=== PATIENT | female | born 1950 | race Caucasian/White ===

== ENCOUNTER 2024-02-28 12:46 | Outpatient (CLI) | payer MEDICARE, BC, SELFPAY ==
--- NOTE | 2024-02-28 13:00 | MR_ITS ---
[address] [address] Phone:?[phone] Fax:?[phone] Referring Physician Information: Lauro Roberto M.D. [id number] [facility] [address] Phone:?[phone] Fax:?[phone] Patient:Omid Carlton D.O.B:?1950 Sex:?Female Phone:?[phone] [facility] MRN:?[id number] Exam Date:?02/28/2024 EXAM: MRI OF THE RIGHT KNEE CLINICAL INFORMATION: The patient is a 74-year-old with right knee pain. Evaluate for medial meniscal tear. PRIOR SURGERY: None reported. COMPARISON STUDIES: Comparison is made to prior radiographs dated 02/20/2024. TECHNICAL INFORMATION: Imaging was performed on a high-field, 1.5 Crystal MR scanner. Axial proton-density and fat-suppressed T2 imaging of the right knee was performed in addition to sagittal proton-density and sagittal fat-suppressed proton-density imaging. Coronal proton-density and coronal STIR imaging was also produced. FINDINGS: Articular/Extraarticular collections: Effusion: Mild. Popliteal cyst: Small, seen on sagittal series 6 image 22. Loose bodies: No well-defined intra-articular loose bodies are present. Subcutaneous and extraarticular soft tissues: Nonspecific subcutaneous soft tissue edema and/or hemorrhage can be seen along the anterior and medial aspects of the right knee. Osseous structures: Mild reactive bony changes are seen involving the patellar apex, in keeping with chondromalacia described below. No other bony abnormalities about the knee are seen. There is no evidence for fracture, contusion, or stress injury. Ligamentous structures: ACL: Intact and normal in appearance. PCL: Intact and normal in appearance. MCL: Intact and normal in appearance. LCL: Intact and normal in appearance. Posterolateral corner: Intact and normal in appearance. Posteromedial corner: No posteromedial corner soft tissue injury. Semimembranosus and pes anserine tendons demonstrate no tendinopathy or associated bursitis. Extensor mechanism/Patellar retinacular structures: Patellar tendon: Intact, without tendinopathy. Quadriceps tendon: Intact, without tendinopathy. Retinacula: The medial and lateral retinacula are intact. The medial patellofemoral ligament is intact. Medial compartment: Medial meniscus: The medial meniscus is abnormal in appearance. There is apical free edge and inferior surface tearing of the middle and posterior portions of the medial meniscus seen on sagittal series 6 images 23 and 24 and on coronal series 7 images 20 and 21. The area of medial meniscal tearing measures approximately 15 mm in greatest dimension. No definite evidence for well-defined parameniscal cyst formation is noted. The anterior horn of the medial meniscus appears intact. Medial femoral condyle: Broad-based changes of grade II to III chondromalacia can be seen along the weightbearing surfaces of the medial femoral condyle. Medial tibial plateau: No chondromalacia, chondral defect, or osteochondral abnormality. Lateral compartment: Lateral meniscus: Degeneration and poorly defined tearing of the far posterior aspect of the lateral meniscus can be seen at the meniscotibial attachment on sagittal series 6 image 12 and on coronal series 7 image 22. The area of poorly defined tearing is thought to measure approximately 8 mm in greatest dimension. The lateral meniscus is otherwise intact. No parameniscal cyst formation is seen. Lateral femoral condyle: No chondromalacia, chondral defect, or osteochondral abnormality. Lateral tibial plateau: No chondromalacia, chondral defect, or osteochondral abnormality. Patellofemoral compartment: Patella: Grade II chondromalacia can be seen involving the patellar apex. Mild underlying bony changes are seen. No other chondral injuries of the patella are noted. Trochlea: No chondromalacia, chondral defect, or osteochondral abnormality. Neurovascular: No definite neurovascular abnormalities are seen. CONCLUSION: 1. Broad-based tearing of the middle and posterior portions of the medial meniscus. 2. Poorly defined tearing of the far posterior aspect of the lateral meniscus at the meniscotibial attachment. 3. 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 4. The cruciate and collateral ligaments appear intact. 5. Mild knee joint effusion and small popliteal cyst. [facility] Electronically signed on 02/28/2024 2:45:00 PM by Raheem Andrea M.D.
== END 2024-02-28 12:47 | disposition home or self-care (01) ==
LOC: MRI 12:48
PROVIDERS: PCP Student in an Organized Health Care Education/Training Program; Visit Provider Orthopaedic Surgery Sports Medicine
DX: M25.561 Pain in right knee (principal); S83.241A Other tear of medial meniscus, current injury, right knee, initial encounter; M22.41 Chondromalacia patellae, right knee; M25.461 Effusion, right knee
CPT/HCPCS: 73721

== ENCOUNTER 2024-03-01 12:00 | Outpatient (CLI) | payer MEDICARE, BC, SELFPAY | END 2024-03-01 12:01 | disposition home or self-care (01) | PROVIDERS: PCP Student in an Organized Health Care Education/Training Program; Referring Provider Student in an Organized Health Care Education/Training Program; Visit Provider Nurse Practitioner | DX: R30.0 Dysuria (principal); B95.2 Enterococcus as the cause of diseases classified elsewhere | CPT/HCPCS: 87086; 87186 ==